=== PATIENT | female | born 1990 | race American Indian/Alaskan Native ===

== ENCOUNTER 2019-02-02 09:21 | Emergency (ER) | payer MEDICAID ==
[2019-02-02 09:33] VITALS: BP 124/55
--- NOTE | 2019-02-02 12:45 | Emergency Department Report ---
ED Rash HPI - HPI Chief Complaint: Skin Rash Stated Complaint: BREAK OUT ALL OVER Duration: 4 Days Location: Neck, Abdomen, Lower Extremities Suspected Cause: Unknown Rash Symptoms: Yes Itching, No Facial Swelling, No Tongue/Oral Swelling, No Breathing Difficulties, No Choking Sensation, No Wheezing/Dyspnea, No Peeling, No Blistering, No Fever, No Lightheaded, No Malaise, No Myalgias Severity: mild Other History: Associated 28-year-old female who presents with a pruritic rash that is generalized for 3-4 days. Patient denies change in detergents and soaps. Patient also reports she is 11 weeks . Last menstrual period was 11/11/2018. Patient states rash started home bilateral lower extremity in spreading up her abdomen and neck. She denies difficulty swallowing, tonsillar edema, shortness of breath, chest pain, or fever. ED Review of Systems ROS: Stated complaint: BREAK OUT ALL OVER Other details as noted in HPI Constitutional: denies: chills, fever Respiratory: denies: cough, shortness of breath, wheezing Cardiovascular: denies: chest pain, palpitations Gastrointestinal: denies: abdominal pain, nausea, diarrhea Skin: rash. denies: lesions Neurological: denies: headache, weakness, paresthesias Psychiatric: denies: anxiety, depression ED Past Medical Hx - Past Medical History Previous Medical History?: No - Surgical History Past Surgical History?: No - Social History Smoking Status: Never Smoker Substance Use Type: None - Medications Home Medications: Home Medications Medication Instructions Recorded Confirmed Last Taken Type EPINEPHrine (NF) [Epipen (Nf)] 0.3 mg IM ONCE PRN #1 syringekit 10/03/15 Unknown Rx Loratadine [Claritin] 10 mg PO DAILY #10 tablet 10/03/15 Unknown Rx hydrOXYzine HCL [Atarax] 25 - 50 mg PO Q8HR PRN #30 tablet 10/03/15 Unknown Rx predniSONE [Deltasone] 40 mg PO QDAY #6 tab 10/03/15 Unknown Rx Famotidine [Pepcid] 20 mg PO DAILY #7 tablet 11/06/15 Unknown Rx hydrOXYzine HCL [Atarax] 25 mg PO Q6HR PRN #28 tablet 11/06/15 Unknown Rx predniSONE [Deltasone] 40 mg PO QDAY 7 Days tab 11/06/15 Unknown Rx Loratadine [Claritin] 10 mg PO DAILY #30 tablet 02/02/19 Unknown Rx Pramoxine/Calamine 1-8% (Nf) 20 applic TP Q2H PRN #1 bottle 02/02/19 Unknown Rx [Caladryl (Nf)] Rash Exam - Exam General: Vital signs noted. No distress. Alert and acting appropriately. HEENT: No Periorbital Edema, No Conjuctival Injection, No Chemosis, No Perioral Edema, No Tongue Edema, No Uvular Edema, No Compromised Airway, No Drooling Lungs: Yes Good Air Exchange (Normal Breath Sounds), No Wheezes, No Ronchi, No Stridor, No Cough, No Labored Respirations, No Retractions, No Use of Accessory Muscles, No Other Abnormal Lung Sounds Heart: Yes Regular, No Murmur Skin: Yes Maculopapular Rash (BLE, anterior torso, and neck, blanchable), No Urticarial Rash, No Morbilliform rash, No Bulla(e), No Excoriations, No Weeping, No Tenderness, No Erythema, No Edema, No Encrustations ED Course Vital Signs 02/02/19 09:30 Temperature 98 F Pulse Rate 69 Respiratory 16 Rate Blood Pressure 124/55 O2 Sat by Pulse 100 Oximetry ED Medical Decision Making - Medical Decision Making Patient was examined by me. Vitals are normal and patient is in no acute distre ss. Patient is drinking fluids while in ER without complication. Rash appears to be allergic contact dermatitis. Patient is 11 weeks gestation. Start Claritin and an Claradryl. Instructed to follow up with RN GASTROENTEROLOGY and PCP. Plan discussed with patient to discharge home and treat outpatient. She agrees with ER plan. Patient discharged home in stable condition. Follow up with PCP in 2- 3 days. Critical care attestation.: If time is entered above; I have spent that time in minutes in the direct care of this critically ill patient, excluding procedure time. ED Disposition Clinical Impression: Pruritic rash Contact dermatitis Qualifiers: Contact dermatitis type: allergic Contact dermatitis trigger: unspecified trigger Qualified Code(s): L23.9 - Allergic contact dermatitis, unspecified cause Disposition: - TO HOME OR SELFCARE Is pt being admited?: No Does the pt Need Aspirin: No Condition: Stable Instructions: Contact Dermatitis (ED) Additional Instructions: Follow-up with your RN GASTROENTEROLOGY for continued care. Prescriptions: Pramoxine/Calamine 1-8% (Nf) [Caladryl (Nf)] 20 applic TP Q2H PRN #1 bottle PRN Reason: Itching Loratadine [Claritin] 10 mg PO DAILY #30 tablet Referrals: FABIÁN POLLARD MD [Primary Care Provider] - 3-5 Days [facility] [Outside] - 3-5 Days [facility] [Outside] - 3-5 Days Forms: Work/School Release Form(ED) Time of Disposition: 12:43
== END 2019-02-02 13:26 | disposition home or self-care (01) ==
LOC: ED 09:21
DX: O99.711 Diseases of the skin and subcutaneous tissue complicating pregnancy, first trimester (principal); L23.9 Allergic contact dermatitis, unspecified cause; Z3A.11 11 weeks gestation of pregnancy
CPT/HCPCS: 99282

== ENCOUNTER 2021-01-23 21:30 | Emergency (ER) | payer SELFPAY ==
[2021-01-23] MEDS ORDERED: TETANUS,DIPH,PERTUSS(ACELL) VACCINE 0.5 ML SYRINGE IM ONE (22:25)
--- NOTE | 2021-01-23 22:33 | Emergency Department Report ---
ED Laceration HPI - HPI Stated Complaint: CUT ON LEFT FOOT Time Seen by Provider: 01/23/21 22:25 Occurred When: Today Location: Lower Extremity Severity: mild, moderate Tetanus Status: Up to Date Laceration Symptoms: Yes Pain, No Foreign Body Sensation, No Numbness, No W eakness Other History: 30-year-old F [place] female this emergency department complaining of laceration to left foot with sustained by a broken mirror which was one on the back of the door that accidentally fell down landing on top of her foot resulting in the laceration and bleeding. Pain is dull and throbbing worse with palpation and range of motion. No fever, chills, sweats she is unsure of the last time when she had a tetanus shot ED Review of Systems ROS: Stated complaint: CUT ON LEFT FOOT Other details as noted in HPI Comment: All other systems reviewed and negative ED Past Medical Hx - Social History Smoking Status: Never Smoker Substance Use Type: None - Medications Home Medications: Home Medications Medication Instructions Recorded Confirmed Last Taken Type EPINEPHrine (NF) [Epipen (Nf)] 0.3 mg IM ONCE PRN #1 syringekit 10/03/15 Unknown Rx Loratadine (Nf) [Claritin] 10 mg PO DAILY #10 tablet 10/03/15 Unknown Rx hydrOXYzine HCL [Atarax] 25 - 50 mg PO Q8HR PRN #30 tablet 10/03/15 Unknown Rx predniSONE [Deltasone] 40 mg PO QDAY #6 tab 10/03/15 Unknown Rx Famotidine [Pepcid] 20 mg PO DAILY #7 tablet 11/06/15 Unknown Rx hydrOXYzine HCL [Atarax] 25 mg PO Q6HR PRN #28 tablet 11/06/15 Unknown Rx predniSONE [Deltasone] 40 mg PO QDAY 7 Days tab 11/06/15 Unknown Rx Loratadine (Nf) [Claritin] 10 mg PO DAILY #30 tablet 02/02/19 Unknown Rx Pramoxine/Calamine 1-8% (Nf) 20 applic TP Q2H PRN #1 bottle 02/02/19 Unknown Rx [Caladryl (Nf)] Laceration Physical Exam - Exam General: Vital signs noted. No distress. Alert and acting appropriately. Laceration Location: Lower Extremity Full Body Front + Back: 1 - Linear laceration 2 cm Laceration Exam: Yes Normal Distal CMS, No Foreign Body, No Exposed Tendon, Vessel, or Nerve, No Tendon Injury - Procedure Description Procedures done: The area prepped draped sterile fashion of the left foot a nesthesia achieved with 2% lidocaine x2 cc. 4 Vicryl was placed simple noted fashion for wound closure x3 with good wound approximation. Procedure tolerated well and estimated blood loss less than 2 cc Critical care attestation.: If time is entered above; I have spent that time in minutes in the direct care of this critically ill patient, excluding procedure time. ED Disposition Clinical Impression: Laceration, Tetanus toxoid inoculation Disposition: - TO HOME OR SELFCARE Is pt being admited?: No Does the pt Need Aspirin: No Condition: Stable Instructions: Laceration Care, Adult, VIS, Tetanus, Diphtheria (Td); Tetanus, Diphtheria, Pertussis (Tdap) - CDC, Sutures, Lexi, or Adhesive Wound Closure, [id number] Additional Instructions: Patient had laceration repaired in the emergency department after copious irrigation. At the at the exploration of the wound there was no evidence of any retained foreign body, no evidence of any underlying fracture x-ray was normal. Tetanus shot is updated. We will defer antibiotics at this present time given the location, the event time, and the patient without surrounding signs of infection. Disposition will discharge patient he was given strict wound return precautions and instructions to follow-up with her primary care within 2 to 3 days for wound reevaluation and and then will follow preceding that for wound check sutures are absorbable. Referrals: IDA SU MD [Staff Physician] - 3-5 Days
== END 2021-01-24 | disposition home or self-care (01) ==
LOC: ED 21:30
DX: S91.312A Laceration without foreign body, left foot, initial encounter (principal); Z79.899 Other long term (current) drug therapy; Z23 Encounter for immunization; W25.XXXA Contact with sharp glass, initial encounter; Y93.89 Activity, other specified; Y92.89 Other specified places as the place of occurrence of the external cause; Y99.8 Other external cause status
CPT/HCPCS: 90715; 99281